=== PATIENT | female | born 1995 | race American Indian/Alaskan Native ===

== ENCOUNTER 2021-06-11 19:01 | Emergency (ER) | payer OTHER ==
[~2021-06-11] VITALS: Ht 162.6 cm; Wt 70.3 kg
[~2021-06-11 19:01] MED LIST: ADVIL200 M1 PO; DEPO-PROVE150 MG/1 M IM; HYDROXYZINE HCL25 MG PO; NAPROXEN500 MG PO; TYLENOL WITH C1 EACH PO
[2021-06-11] MEDS ORDERED: HYDROCODON-ACE1 EA10 PO (21:53)
== END 2021-06-11 22:14 | disposition home or self-care (01) ==
LOC: ED 19:01
DX: S62.622A Displaced fracture of middle phalanx of right middle finger, initial encounter for closed fracture (principal); W22.8XXA Striking against or struck by other objects, initial encounter; Y93.72 Activity, wrestling; Z88.0 Allergy status to penicillin
CPT/HCPCS: 26725; 73140; 99283-25

== ENCOUNTER 2021-06-19 06:30 | Day surgery (SDC) | payer OTHER ==
[~2021-06-19] VITALS: Ht 162.6 cm; Wt 70.3 kg
[~2021-06-19 06:30] MED LIST changes: +HYDROCODON-ACE1 EA10 PO
[2021-06-19] MEDS ORDERED: HYDROCODON-ACE1 EA10 PO (09:51)
--- NOTE | 2021-06-19 09:57 | NUR ---
06/19/21 0957 Sunitha Armas 0947 PATIENT ARRIVES TO PACU AWAKE, TALKING APPROPRIATELY WITH STAFF. RESP AND UNLABORED, ROOM AIR SATS >95%. DENIES PAIN OR NAUSEA. 0955 PATIENT WALKED TO BATHROOM. DENIES PAIN OR NAUSEA.
--- NOTE | 2021-06-22 07:13 | OR ---
[facility] [address], [place] [address] Signed DATE OF OPERATION: 06/19/2021 SURGEON: Kathy Hunt MD PREOPERATIVE DIAGNOSIS: P2 fracture, right middle finger. POSTOPERATIVE DIAGNOSIS: P2 fracture, right middle finger. PROCEDURE PERFORMED: Closed reduction and percutaneous pinning of right P2 fracture. AIR POLLUTION ANALYST: None. ANESTHESIA: MAC. IMPLANTS: Two 1.25 K-wires. BRIEF HISTORY: Salinas is a 25-year-old female, who was wrestling with her sons and ended up with a fracture of her middle finger. This was displaced and angulated. It was partially reduced in the ER and referred to us. It was unstable. Risks and benefits of percutaneous pinning were discussed with her and she elected to proceed. DESCRIPTION OF PROCEDURE: Once consent was obtained, she was taken to the operating room after adequate anesthesia. The arm was prepped and draped in a standard sterile fashion. Closed reduction was performed and held in position. One K-wire was passed from the medial aspect across the fracture engaging the body of the middle phalanx proximally. Second K-wire was placed slightly proximal to that since it was an oblique fracture. The fracture was stable and anatomically reduced at the end of the procedure. Both pins were cut and Jergens ball was applied. The wounds were then dressed with sterile gauze and a splint. She tolerated the procedure well. All sponge, needle, and instrument counts were correct. Electronically Signed By: KATHY HUNT MD 06/22/21 0713 PATIENT NAME: WATCHMAN,NAKEYHA LUÍS OPERATIVE REPORT DATE OF : [birth year] REPORT #: [id number] PHYSICIAN: KATHY HUNT MD PCP: OLIVA MATTHEW MD REPORT IS CONFIDENTIAL AND NOT TO BE RELEASED WITHOUT AUTHORIZATION [address] [address] Signed Kathy Hunt MD /SHY /[id number] Copies: ~ Electronically Signed By: KATHY HUNT MD 06/22/2113 PATIENT NAME: SALINAS CHAVEZ OPERATIVE REPORT DATE OF : [birth year] REPORT #: [id number] PHYSICIAN: KATHY HUNT MD PCP: OLIVA MATTHEW MD REPORT IS CONFIDENTIAL AND NOT TO BE RELEASED WITHOUT AUTHORIZATION
== END 2021-06-19 10:25 | disposition home or self-care (01) ==
LOC: DS 06:30 → OPS 06:30 → DS 10:15 → OPS 10:25
PROVIDERS: ATTEND Specialist
PROC: 0PST34Z Reposition Right Finger Phalanx with Internal Fixation Device, Percutaneous Approach (ICD-10-PCS; principal; 2021-06-19 10:15)
DX: S62.622A Displaced fracture of middle phalanx of right middle finger, initial encounter for closed fracture (principal); W51.XXXA Accidental striking against or bumped into by another person, initial encounter; Y93.72 Activity, wrestling; Z88.0 Allergy status to penicillin; Z88.1 Allergy status to other antibiotic agents; Z20.822 Contact with and (suspected) exposure to COVID-19
CPT/HCPCS: 01820; 64450; 73140; 76942; 84703; J0690; J1100; J1885; J2001; J2250; J2405; J2704; J2795; J7121; U0003